=== PATIENT | female | born 1965 | race Caucasian/White ===

== ENCOUNTER → 2018-08-20 | Outpatient (CLI) | payer BC ==
--- NOTE | 2018-08-20 12:49 | CONS ---
Assessment/Plan Assessment/Plan Hospital Course (Demo Recall) This is a 53-year-old female with a small subcutaneous cyst just medial to her left patellar tendon. This is most likely benign cyst that requires no further workup as it has not changed size in multiple years and is only 0.5 x 0.5 cm in size and is mobile and subcutaneous. Possibly this is an inclusion cyst. The patient wants surgical excision of the cyst. I did caution that removing the cyst could cause more scar tissue locally which may also be painful when kneeling. However I did suggest a diagnostic lidocaine injection and if this did work and she still wished to have it removed we could do so in the operating room under light sedation and local block. Plan: Lidocaine injection to the cyst Patient will return home think about surgical options and gives a call when she is ready for excision. Assessment/Plan (Daily) Left knee cyst lidocaine injection procedure: Risks and benefits of lidocaine injection reviewed with patient. The risks include infection, failure, pain, swelling, nerve/tendon/ligament damage. The patient verbalized understanding and verbal consent was obtained prior to procedure. The left knee was prepped in a sterile fashion with alcohol and betadine the site of injection was confirmed. Direct anterior approach to the cyst. The skin and capsule of the cyst was anesthetized with 1.5mL 1% lidocaine. Good hemostasis was achieved and no complications noted. The patient tolerated the procedure well. The patient had immediate relief From the injection. She had no tenderness to palpation over the cyst. Consultation Date/Type/Reason Admit Date/Time Date of Consultation: Aug 20, 2018 Reason for Consultation Bump on left knee. Date/Time of Note DATE: 08/20/18 TIME: 12:38 Hx of Present Illness This is a 53-year-old otherwise healthy female who presents today with chief complaint of a painful left knee bump. She first noticed this small bump on her knee back in 2016. She denies any trauma to the knee. Denies any change in size. The bump/mass has become more painful. It is rated 6/10 and is sharp. The pain only occurs when the patient is kneeling or when something brushes against the bone. Sometimes it so sensitive that even a bedsheet bothers it. Her walking tolerance is not limited. It is not affected during normal activities of daily living. She is interested in getting this treated as it prevents her from doing some of her activities such as yoga. She denies any change in size since she first noticed the cyst in 2016. She denies any swelling. Denies any erythema or warmth. Denies any numbness and tingling. Patient denies fever, chills, shortness of breath, chest pain, nausea/vomiting, constipation, diarrhea, numbness, and tingling. Past Medical History Denies medical history Past Surgical History Past Surgical Hx: noncontributory Family History Significant Family History: no pertinent family hx Social History Alcohol Use: none Smoking Status: Never smoker Drug Use: none Exam/Review of Systems Exam Vitals Weight: 115 pounds Height: 5 foot 3 inches Temperature: 90.4 Heart Rate: 67 Blood Pressure: 103/61 Respiratory Rate: 12 Exam General: Awake, alert, in no acute distress, pleasant and cooperative Heart: regular rhythm Lungs: breathing comfortably, no tachypnea or dyspnea MUSCULOSKELETAL: Left lower externally: Skin is intact. There is no effusion. There is no swelling about the knee. No erythema or warmth. There is a localized and focal tenderness to palpation over a small 0.5 x 0.5 cm mass. The mass is located just medial to the patellar tendon. It is subcutaneous. It is mobile. It is firm. Remainder of the knee exam is normal with full range of motion no tenderness to palpation along the joint lines. Ligamentously stable. Sensation intact to light touch in a sural, saphenous, deep peroneal, superficial peroneal, medial and lateral plantar nerve distribution. Motor is intact, patient able to dorsiflex and plantarflex ankle and extend and flex great toe. Dorsalis Pedis pulse +2, Brisk capillary refill. Compartments are soft. Calves non-tender to palpation bilaterally. Imaging Imaging The patient received a standard set of films today that were personally reviewed. Imaging included a standing bilateral knee AP, PA flexion, merchant views and a dedicated lateral of the affected knee: There is neutral alignment of the knee. There is no loss of joint space in any compartment(s). There is no osteophyte formation. There is no subchondral sclerosis. There are no subchondral cysts. No fracture. No effusion. Normal knee x-ray. BELINDA FRENCH MD Aug 20, 2018 12:49
--- NOTE | 2018-08-21 05:39 | RADRPT ---
PROCEDURE: Bilateral knee series CLINICAL INDICATION: Pain TECHNIQUE: Weightbearing AP neutral weightbearing AP 45 to reflects a, weightbearing bilateral later al and sunrise views are obtained COMPARISON: None available FINDINGS: Right knee: Normal mineralization is present. The joint spaces demonstrate mild medial lateral and patellofemoral joint space narrowing on weightbearing views. No evidence for acute fractures, dislocations or effus ions are present. Left knee: Normal mineralization is present. The joint spaces demonstrate no significant joint space narrowing. No evidence for acute fractures, dislocations or effusions are present. IMPRESSION: 1. No acute fractures or dislocations. 2. Mild right tricompartmental joint space narrowing. 3. Normal left knee RPTAT: HDC .Kala Alvarado MD, Date Time Electronically viewed and signed by .Kala Alvarado MD, on 08/21/2018 05:39 .C/
== END | disposition home or self-care (01) ==
LOC: HKI 12:03
PROVIDERS: ATTEND Orthopaedic Surgery Adult Reconstructive Orthopaedic Surgery
DX: M25.862 Other specified joint disorders, left knee (principal)
CPT/HCPCS: 20610; 73564; G0463